=== PATIENT | male | born 1950 | race Hispanic/Latino ===

== ENCOUNTER → 2022-10-09 | Outpatient (CLI) | payer MEDICARE ==
[2022-10-09 12:48] LABS: BILIRUBIN,URINE NEGATIVE (NEGATIVE); UROBILINOGEN,URINE 0.2 E.U./dL (0.2)
== END | disposition home or self-care (01) ==
LOC: NPLAB 10:08
PROVIDERS: ATTEND Internal Medicine
DX: N40.0 Benign prostatic hyperplasia without lower urinary tract symptoms (principal); N39.0 Urinary tract infection, site not specified
CPT/HCPCS: 81001; 87077; 87086; 87186